=== PATIENT | female | born 1980 | race Caucasian/White ===

== ENCOUNTER 2021-04-02 09:53 | Outpatient (CLI) | payer OTHER ==
[2021-04-02] MEDS ORDERED: Lidocaine 1% PF 5 ML VIAL ONE (10:08)
[2021-04-02] MEDS ORDERED: Sodium Bicarbonate 2.5 MEQ/5 ML VIAL ONE (10:08)
[2021-04-02 12:28] LABS: #Basophils 0.1 10x3/uL (0.0-0.2); #Eosinphils 0.3 10x3/uL (0.0-0.5); #Monocytes 0.5 10x3/uL (0.0-1.1); #Neutrophils 3.7 10x3/uL (1.5-8.4); %Basophils 0.8 % (0.0-2.0); %Eosinophils 4.3 % (0.0-6.0); %Lymphocytes 30.3 % (18.0-47.0); %Monocytes 7.2 % (0.0-10.0); %Neutrophils 56.9 % (40.0-75.0); Hemoglobin 11.3 g/dL (12.0-15.5); Mean Corpuscular HGB CONC 30.5 g/dL (32.0-36.0); Mean Corpuscular Hemoglobin 24.7 pg (27.0-33.0); Mean Corpuscular Volume 80.8 fl (81.6-98.3); Mean Platelet Volume 13.6 fl (7.4-10.4); Platelet Count 183 10x3/uL (150-450); RBC Distribution Width 15.1 % (11.5-14.5); Red Blood Cell (RBC) Count 4.58 10x6/uL (3.90-5.03); White Blood Cell (WBC) Count 6.5 10x3/uL (3.5-10.5)
[2021-04-02 12:34] LABS: Prothrombin Time 10.7 sec (9.5-12.1)
[2021-04-02 12:42] LABS: ALT (SGPT) 168 U/L (8-55); AST (SGOT) 78 U/L (5-34); Albumin 4.5 g/dL (3.5-5.0); Alkaline Phosphatase 79 U/L (40-110); Anion Gap 12 mmol/L (10-20); BUN (Urea Nitrogen) 11 mg/dL (7.0-18.7); Bilirubin, Total 0.8 mg/dL (0.2-1.2); Calc. Creatinine Clearance 0 mL/min (70-130); Calcium 9.4 mg/dL (7.8-10.44); Carbon Dioxide 25 mmol/L (22-29); Chloride 104 mmol/L (98-107); Globulin 3.2 g/dL (2.4-3.5); Glucose 90 mg/dL (70-105); Potassium 3.9 mmol/L (3.5-5.1); Protein, Total 7.7 g/dL (6.0-8.3); Sodium 137 mmol/L (136-145)
[2021-04-02 12:45] LABS: BHCG - Serum Negative (NEGATIVE); Pregs Control Background? CLEAR/WHITE (CLR/WHITE); Pregs Control Bar Appear? YES (CONTROL BAR)
[2021-04-02 13:00] LABS: HIV (1/2) Antibody/Antigen Non-Reactive (NonReactive); Hep B Surf Ag Non-Reactive S/CO (NonReactive)
[2021-04-02 13:15] LABS: HBSAg Index 0.56 S/CO (0-0.99)
[2021-04-02 19:24] LABS: HBSAB Concentration Less than 8.00 mIU/mL; Hep B Surf AB Non-Reactive (NonReactive)
[2021-04-02 19:34] LABS: Hep C IgG Ab Reflex HepC Qnt (NonReactive); Hep C Index 12.63 S/CO (0-0.79)
[2021-04-03 13:44] LABS: Reference Lab Name LABCORP
[2021-04-03 14:26] LABS: Ref Lab Test Ordered FIBROSURE HSV
[2021-04-05 15:15] LABS: Hep C PCR-Quant 99900 IU/mL (.)
== END 2021-04-02 09:54 | disposition home or self-care (01) ==
LOC: CSHRAD 09:53
PROVIDERS: ATTEND Internal Medicine Gastroenterology
DX: B18.2 Chronic viral hepatitis C (principal)
CPT/HCPCS: 80053; 84703; 85025; 85610; 86706; 86708; 86803; 87340; 87389; 87522; 87902

== ENCOUNTER → 2021-08-29 | Day surgery (SDC) | payer OTHER ==
[2021-09-02 09:13] LABS: Hep C PCR-Quant HCV Not Detected IU/mL (.)
== END ==
LOC: CSHRAD 10:42
PROVIDERS: ATTEND Internal Medicine Gastroenterology
DX: B18.2 Chronic viral hepatitis C (principal)
CPT/HCPCS: 87522

== ENCOUNTER 2022-06-18 08:34 | Emergency (ER) | payer MEDICAID, OTHER ==
[2022-06-18] MEDS ORDERED: Dexamethasone 10 MG/ML VIAL ONE (09:24)
[2022-06-18 09:35] LABS: SARS-CoV-2 NAA Rapid Test Not Detected (NotDetected)
== END 2022-06-18 09:27 | disposition home or self-care (01) ==
LOC: CSHERS 08:34
DX: J02.9 Acute pharyngitis, unspecified (principal); B34.9 Viral infection, unspecified; Z20.822 Contact with and (suspected) exposure to COVID-19; F17.210 Nicotine dependence, cigarettes, uncomplicated
CPT/HCPCS: 99283; J1100

== ENCOUNTER 2023-05-02 19:01 | Emergency (ER) | payer OTHER, MEDICAID ==
[~2023-05-02 19:01] MED LIST: Iopamidol 370 76% 100 ML VIAL ONE
[2023-05-02 21:16] LABS: BHCG - Serum Negative (NEGATIVE)
[2023-05-02 21:18] LABS: Pregs Control Background? CLEAR/WHITE (CLR/WHITE); Pregs Control Bar Appear? YES (CONTROL BAR)
[2023-05-02 21:23] LABS: ALT (SGPT) 14 U/L (8-55); AST (SGOT) 14 U/L (5-34); Albumin 4.5 g/dL (3.5-5.0); Alkaline Phosphatase 65 U/L (40-110); Anion Gap 14 mmol/L (10-20); BUN (Urea Nitrogen) 14 mg/dL (7.0-18.7); Bilirubin, Total 0.4 mg/dL (0.2-1.2); Calc. Creatinine Clearance 0 mL/min (70-130); Calcium 9.8 mg/dL (7.8-10.44); Carbon Dioxide 23 mmol/L (22-29); Chloride 105 mmol/L (98-107); Estimated GFR 98; Globulin 3.7 g/dL (2.4-3.5); Glucose 92 mg/dL (70-105); Potassium 3.8 mmol/L (3.5-5.1); Protein, Total 8.2 g/dL (6.0-8.3); Sodium 138 mmol/L (136-145)
[2023-05-02 21:24] LABS: Hematocrit 41.1 % (34.9-44.5); Hemoglobin 13.4 g/dL (12.0-15.5); Mean Corpuscular HGB CONC 32.6 g/dL (32.0-36.0); Mean Corpuscular Hemoglobin 27.2 pg (27.0-33.0); Mean Corpuscular Volume 83.5 fl (81.6-98.3); Mean Platelet Volume 13.6 fl (7.4-10.4); Platelet Count 203 10x3/uL (150-450); RBC Distribution Width 13.3 % (11.5-14.5); Red Blood Cell (RBC) Count 4.92 10x6/uL (3.90-5.03); White Blood Cell (WBC) Count 11.6 10x3/uL (3.5-10.5)
[2023-05-02 21:56] LABS: Eosinophils 5 % (0-10); Lymphocytes 21 % (21-51); Monocytes 5 % (0-10); Reactive Lymphocytes 6 % (0-10)
[2023-05-02 21:58] LABS: Platelet Adequacy Comment Appears Adequate
[2023-05-02 22:19] LABS: MDiff Complete? YES
== END 2023-05-03 00:24 | disposition home or self-care (01) ==
LOC: CSHERS 19:01
DX: J18.9 Pneumonia, unspecified organism (principal); F17.210 Nicotine dependence, cigarettes, uncomplicated
CPT/HCPCS: 71045; 71275; 80053; 84703; 85025; 85379; 93005; Q9967